=== PATIENT | female | born 1935 | race Caucasian/White ===

== ENCOUNTER → 2023-07-26 15:30 | Outpatient (REF) | payer MEDICARE, OTHER, SELFPAY ==
[2023-07-26 15:57] LABS: Urine Albumin Trace (Neg - Trace); Urine Bilirubin Negative (Negative); Urine Character Clear (Clear); Urine Color Yellow; Urine Glucose Negative (Negative); Urine Ketone Negative (Negative); Urine Leukocyte 2+ (Negative); Urine Nitrite Negative (Negative); Urine Occult Blood Negative (Negative); Urine Urobilinogen Negative (Neg - 1+)
[2023-07-26 16:10] LABS: Urine Calcium Oxalate Crystals Present; Urine Red Blood Cell 0-2 /HPF (0-2)
[2023-07-26 16:11] LABS: Urine Bacteria Many (Negative)
== END ==
LOC: OLABWPC 15:30
PROVIDERS: ATTENDING PHYSICIAN Family Medicine
DX: R30.0 Dysuria (principal)
CPT/HCPCS: 81003; 81015; 87086

== ENCOUNTER → 2023-12-12 11:20 | Outpatient (REF) | payer MEDICARE, OTHER, SELFPAY ==
[2023-12-12 11:49] LABS: % Eosinophils 3.5 % (0-6); % Immature Granulocytes 0.2 % (0-0.5); % Lymphocytes 19.8 % (20.5-51.1); % Monocytes 11.1 % (1.7-9.3); % Neutrophils 64.4 % (42.2-75.2); Absolute Basophils 0.1 10^3/uL (0-0.2); Absolute Eosinophils 0.3 10^3/uL (0-0.7); Absolute Lymphocytes 1.6 10^3/uL (1.2-3.4); Absolute Monocytes 0.9 10^3/uL (0.1-0.6); Absolute Neutrophils 5.2 10^3/uL (1.4-6.5); Hemoglobin 12.9 g/dL (12.0-16.0); Mean Corp Hgb Conc. 32.3 g/dL (33.0-37.0); Mean Corpuscular Hgb 31.7 pg (27.0-31.0); Mean Corpuscular Volume 98.3 fL (81.0-99.0); Mean Platelet Volume 11.7 fL (7.4-10.4); Nucleated Red Blood Cells % 0 %; Platelet Count 189 10^3/uL (130-400); Red Blood Cell Count 4.07 10^6/uL (4.20-5.40)
[2023-12-12 12:32] LABS: TSH Reflex To Free T4 2.48 uIU/ml (0.47-4.68)
[2023-12-13 09:39] LABS: Glycohemoglobin (HgbA1c) 6.1 % (4.0-5.6)
== END ==
LOC: OLABSOL 11:20
PROVIDERS: ATTENDING PHYSICIAN Family Medicine
DX: E78.00 Pure hypercholesterolemia, unspecified (principal); I12.9 Hypertensive chronic kidney disease with stage 1 through stage 4 chronic kidney disease, or unspecified chronic kidney disease; R73.9 Hyperglycemia, unspecified
CPT/HCPCS: 36415; 83036; 84443; 85025

== ENCOUNTER → 2023-12-19 11:57 | Outpatient (REF) | payer MEDICARE, OTHER, SELFPAY ==
[2023-12-19 13:14] LABS: ALT (SGPT) 19 U/L (0-35); AST (SGOT) 23 U/L (14-36); Albumin 3.8 g/dl (3.5-5.0); Alkaline Phosphatase 76 U/L (38-126); Blood Urea Nitrogen 26 mg/dl (7-17); Calcium 9.2 mg/dl (8.4-10.2); Carbon Dioxide 27 mmol/L (22-30); Chloride 104 mmol/L (98-107); Glucose 90 mg/dl (70-99); HDL Cholesterol 63 mg/dl; LDL Cholesterol, Calculated 70 mg/dl; Potassium 4.4 mmol/L (3.5-5.1); Sodium 140 mmol/L (135-145); Total Bilirubin 0.5 mg/dl (0.2-1.3); Total Cholesterol 144 mg/dl (50-199); Total Protein 6.3 g/dl (6.3-8.2); Triglyceride 56 mg/dl (10-149); Very Low Density Lipoprotein 11 mg/dl (0-30); eGFR > 60.00
== END ==
LOC: OLABSOL 11:57
PROVIDERS: ATTENDING PHYSICIAN Family Medicine
DX: E78.00 Pure hypercholesterolemia, unspecified (principal); I12.9 Hypertensive chronic kidney disease with stage 1 through stage 4 chronic kidney disease, or unspecified chronic kidney disease
CPT/HCPCS: 36415; 80053; 80061

== ENCOUNTER → 2024-05-23 09:00 | Outpatient (REF) | payer MEDICARE, OTHER, SELFPAY ==
[2024-05-23 13:01] LABS: ALT (SGPT) 25 U/L (0-35); AST (SGOT) 24 U/L (14-36); Albumin 3.9 g/dl (3.5-5.0); Alkaline Phosphatase 75 U/L (38-126); Blood Urea Nitrogen 26 mg/dl (7-17); Carbon Dioxide 27 mmol/L (22-30); Chloride 105 mmol/L (98-107); Glucose 112 mg/dl (70-99); HDL Cholesterol 78 mg/dl; LDL Cholesterol, Calculated 84 mg/dl; Potassium 3.9 mmol/L (3.5-5.1); Sodium 143 mmol/L (135-145); Total Bilirubin 0.5 mg/dl (0.2-1.3); Total Cholesterol 178 mg/dl (50-199); Total Protein 6.6 g/dl (6.3-8.2); Triglyceride 82 mg/dl (10-149); Very Low Density Lipoprotein 16 mg/dl (0-30); eGFR > 60.00
[2024-05-23 13:10] LABS: TSH Reflex To Free T4 1.65 uIU/ml (0.47-4.68)
== END ==
LOC: OLABMERCHI 09:00
PROVIDERS: ATTENDING PHYSICIAN Family Medicine
DX: E78.00 Pure hypercholesterolemia, unspecified (principal); I12.9 Hypertensive chronic kidney disease with stage 1 through stage 4 chronic kidney disease, or unspecified chronic kidney disease
CPT/HCPCS: 36415; 80053; 80061; 84443

== ENCOUNTER 2024-05-27 15:00 | Emergency (ER) | payer MEDICARE, OTHER, SELFPAY ==
[2024-05-27 15:06] VITALS: BP 146/78
--- NOTE | 2024-05-27 15:07 | ED.GENMED ---
ED Provider Triage
<Kassidy Flor PA-C - Last Filed: 05/27/24 16:42>
-
Patient seen by provider in Triage?: Seen in Triage
Attestation: A medical screening examination has been initiated by a qualified medical provider. Based on the assessment performed at this time, it has been determined that an emergent medical condition may exist and the patient has been informed
that further medical evaluation and possible additional diagnostic testing may be needed.
HPI: 89yoF here after a head injury. Went to sit in a chair and hit head against wall. No LOC. Acting normally per family. Presenting with headache and scalp hematoma.
GENERAL: Alert , in no apparent distress
EYE: No visual abnormalities.
NECK: Trachea midline
ENT: No visible abnormalities.
LUNGS: No acute respiratory distress
NEUROLOGICAL: Alert and oriented
SKIN: Skin intact. No visible changes.
MUSCULOSKELETAL: Moving extremities normally
PSYCH: Normal and appropriate interaction.
This is a medical evaluation conducted in person to initiate diagnostic evaluation and provide initial therapeutics. Please see further documentation by the treating clinician.
CT head ordered.
History of Present Illness
<Kassidy Flor PA-C - Last Filed: 05/27/24 16:42>
General
Chief Complaint: Head Injury
Time Seen by Provider: 05/27/24 15:35
<Barrington Hernandez Jr., PA-C - Last Filed: 05/27/24 17:15>
General
Source: patient, family, ambulance crew and jail
Exam Limitations: dementia
Nursing documentation reviewed up to this point in time: agreed with
History of Present Illness
History of Present Illness:
89-year-old female presenting to the emergency department today after trying to sit in the chair fell backward hit the back of her head did not lose consciousness otherwise is acting her self no additional concerns not on blood thinners.
Past History
<Kassidy Flor PA-C - Last Filed: 05/27/24 16:42>
Past History
ED Past Medical History: Cancer (Left breast cancer), HTN, Hypercholesterolemia, NIDDM and Other (Chronic kidney disease stage III)
ED Past Surgical History: Gynecological and Orthopedic
Social History
Tobacco: Non-smoker
Alcohol: None
Drug: None
Review of Systems
<Barrington Hernandez Jr., PA-C - Last Filed: 05/27/24 17:15>
Review of Systems
Allergies reviewed?: Yes
Unable to obtain full review of systems at this time due to: dementia
All Other Systems: ROS reviewed and negative except as documented in HPI and ROS
Phy Exam
<Barrington Hernandez Jr., PA-C - Last Filed: 05/27/24 17:15>
Physical Exam
Physical Exam:
GENERAL: Alert , in no apparent distress
EYE: pupils equal and reactive no neck no neck pain
NECK: Supple, no significant adenopathy.
ENT: Small hematoma to the right occipital region o/p clr, mmm.
CARDIAC: Regular rate and rhythm .
LUNGS: Clear breath sounds bilaterally, no acute respiratory distress, no wheezes/rales/rhonchi
ABDOMEN: Soft, without focal tenderness, no r/g, no cvat
NEUROLOGICAL: Alert and oriented, no focal neuro deficits
SKIN: Warm and dry, skin intact.
MUSCULOSKELETAL: No edema, well perfused.
PSYCH: Normal and appropriate interaction.
Course
<Kassidy Flor PA-C - Last Filed: 05/27/24 16:42>
Orders/Labs/Results
Orders:
Orders
05/27/24 15:08
CT Head W/o Iv Contrast Urgent
Comment:
Reason For Exam: head injury
Vital Signs
Initial and Last Documented VS:
Initial Vital Signs
Temp Pulse Resp BP Pulse Ox
98.3 F 51 16 146/78 99
05/27/24 15:06 05/27/24 15:06 05/27/24 15:06 05/27/24 15:06 05/27/24 15:06
Last Documented Vital Signs
Temp Pulse Resp BP Pulse Ox
98.3 F 51 16 146/78 99
05/27/24 15:06 05/27/24 15:06 05/27/24 15:06 05/27/24 15:06 05/27/24 15:06
<Barrington Hernandez Jr., PA-C - Last Filed: 05/27/24 17:15>
Orders/Labs/Results
Orders:
Orders
05/27/24 15:08
CT Head W/o Iv Contrast Urgent
Comment:
Reason For Exam: head injury
Vital Signs
Initial and Last Documented VS:
Initial Vital Signs
Temp Pulse Resp BP Pulse Ox
98.3 F 51 16 146/78 99
05/27/24 15:06 05/27/24 15:06 05/27/24 15:06 05/27/24 15:06 05/27/24 15:06
Last Documented Vital Signs
Temp Pulse Resp BP Pulse Ox
98.3 F 51 16 146/78 99
05/27/24 15:06 05/27/24 15:06 05/27/24 15:06 05/27/24 15:06 05/27/24 15:06
<Barrington Hernandez Jr., PA-C - Last Filed: 05/27/24 17:15>
MDM/Problems Addressed
MDM/Problems Addressed:
89-year-old female past medical history of dementia presenting to the emergency department after missing a chair hitting the back of her head on the wall denies additional injuries able to walk no numbness or weakness patient no distress no
discomfort at this time CT scan of the head was normal no additional concerns otherwise stable for discharge return precautions given.
<Barrington Hernandez Jr., PA-C - Last Filed: 05/27/24 17:15>
*Critical Care Note
Total Time (30-74mins, 75-104mins- exclusive of procedures): Not Applicable
ED Attending Note
<Kassidy Flor PA-C - Last Filed: 05/27/24 16:42>
-
Portions of this chart may have been created with voice recognition software.� Occasional wrong word or��sound alike� substitutions may have occurred due to the inherent limitations of voice recognition software.
Discharge Plan
Departure
Patient Disposition: Home (Routine Discharge)
Date of Disposition: 05/27/24
Time of Disposition: 17:15
Patient with high blood pressure during this ER visit?: No
Condition: Good
Covid-19: Not Applicable
Discharge Problem:
Hematoma of occipital region of scalp, Fall
Instructions: Minor Head Injury (DC)
Prescriptions:
No Action
atorvastatin 20 MG tablet
20 mg PO QPM
donepezil 5 MG tablet
5 mg PO HS
atenolol 50 MG tablet
50 mg PO DAILY
hydrochlorothiazide 12.5 MG tablet
12.5 mg PO DAILY
multivitamin with folic acid [Tab-A-Niles] 1 TABLET tablet
1 tab PO DAILY
Referrals:
Marlon Benitez MD [Family Provider] -
Activity Restrictions/Additional Instructions:
You came to the emergency department today after a fall. Here you had a reassuring assessment. Return to the emergency department for any worsening, new or concerning symptoms.
Interventions
Interventions:
*ED COVID-19 Vaccine History Last Done: 05/27/24 16:02
ED- Neurological Assessment Last Done: 05/27/24 16:02
ED-Skin Assessment Last Done: 05/27/24 16:02
Discharge Date and Time
Print Language: GEORGIAN
[2024-05-27 17:36] VITALS: BP 145/80
== END 2024-05-27 17:38 | disposition home or self-care (01) ==
LOC: EMR 15:00
PROVIDERS: EMERGENCY PHYSICIAN Emergency Medicine; FAMILY PHYSICIAN Family Medicine
DX: S00.03XA Contusion of scalp, initial encounter (principal); W07.XXXA Fall from chair, initial encounter; E78.00 Pure hypercholesterolemia, unspecified; I12.9 Hypertensive chronic kidney disease with stage 1 through stage 4 chronic kidney disease, or unspecified chronic kidney disease; E11.22 Type 2 diabetes mellitus with diabetic chronic kidney disease; N18.30 Chronic kidney disease, stage 3 unspecified; F03.90 Unspecified dementia, unspecified severity, without behavioral disturbance, psychotic disturbance, mood disturbance, and anxiety
CPT/HCPCS: 99284; 70450

== ENCOUNTER → 2024-06-12 09:21 | Outpatient (REF) | payer MEDICARE, OTHER, SELFPAY ==
[2024-06-12 13:15] LABS: % Basophils 0.8 % (0-2); % Eosinophils 2.7 % (0-6); % Immature Granulocytes 0.3 % (0-0.5); % Lymphocytes 29.8 % (20.5-51.1); % Monocytes 11.5 % (1.7-9.3); % Neutrophils 54.9 % (42.2-75.2); Absolute Basophils 0.1 10^3/uL (0-0.2); Absolute Eosinophils 0.2 10^3/uL (0-0.7); Absolute Lymphocytes 2.1 10^3/uL (1.2-3.4); Absolute Monocytes 0.8 10^3/uL (0.1-0.6); Absolute Neutrophils 3.9 10^3/uL (1.4-6.5); Hematocrit 43.5 % (37.0-47.0); Hemoglobin 14.1 g/dL (12.0-16.0); Mean Corp Hgb Conc. 32.4 g/dL (33.0-37.0); Mean Corpuscular Hgb 31.1 pg (27.0-31.0); Mean Corpuscular Volume 95.8 fL (81.0-99.0); Mean Platelet Volume 11.1 fL (7.4-10.4); Nucleated Red Blood Cells % 0 %; Platelet Count 198 10^3/uL (130-400); Red Blood Cell Count 4.54 10^6/uL (4.20-5.40); Red Cell Dist. Width 14.2 % (11.5-14.5); White Blood Cell Count 7.1 10^3/uL (4.8-10.8)
[2024-06-12 13:26] LABS: ALT (SGPT) 26 U/L (0-35); AST (SGOT) 27 U/L (14-36); Albumin 4.1 g/dl (3.5-5.0); Alkaline Phosphatase 91 U/L (38-126); Blood Urea Nitrogen 21 mg/dl (7-17); Calcium 9.2 mg/dl (8.4-10.2); Carbon Dioxide 30 mmol/L (22-30); Chloride 102 mmol/L (98-107); Glucose 120 mg/dl (70-99); Sodium 138 mmol/L (135-145); Total Bilirubin 0.7 mg/dl (0.2-1.3); eGFR > 60.00
[2024-06-12 14:11] LABS: Glycohemoglobin (HgbA1c) 6.1 % (4.0-5.6)
== END ==
LOC: OLABMERCHI 09:21
PROVIDERS: ATTENDING PHYSICIAN Family Medicine
DX: E78.00 Pure hypercholesterolemia, unspecified (principal); I12.9 Hypertensive chronic kidney disease with stage 1 through stage 4 chronic kidney disease, or unspecified chronic kidney disease; R73.9 Hyperglycemia, unspecified
CPT/HCPCS: 36415; 80053; 83036; 85025